=== PATIENT | male | born 1945 | race Caucasian/White ===

== ENCOUNTER 2023-10-17 11:52 | Outpatient (AMB) | payer MEDICARE, SELFPAY ==
--- NOTE | 2023-10-17 11:54 | AM.OFFWIN_ITS ---
Intake Vital Signs 10/17/23 11:56 Height 5 ft 9.6 in Weight 150 lb BMI 21.8 BP 114/68 Blood Pressure Location Lt brachial Position Sitting Pulse 85 Pulse Source Pulse Oximeter Temp 98.7 F Temp Source Oral Pulse Oximetry (%) 98 Oxygen Delivery Method Room Air Intake Visit Reasons: pain in right big toe Intake Note: Pt c/o RT great toe pain. Started a week ago, was trimming nails and cut flesh Patient Tobacco Use Status: Never used Tobacco Allergies No Known Allergies Allergy (Verified 10/17/23 11:55) Do you need a note to return to daycare/school/sports/work: No HPI HPI Comments History of Present Illness Details This is a 70-year-old male with past medical history of BPH, hyperlipidemia and Hodgkin's lymphoma presenting for evaluation of pain in his right great toe that has been ongoing for the past 5 days. Patient states approximately 1 week ago his was trimming his toenails when she cut the skin adjacent to his right great toe. Patient states he noticed pain on the lateral edge of his right great toe 5 days ago which became red 3 days ago. Patient denies having any fevers, chills, discharge from the lesion or pain with ambulation. [facility] Social History Patient Tobacco Use Status: Never used Tobacco Review of Systems Const All systems reviewed & are unremarkable except as noted in HPI and below Denies chills and Denies fever(s) Musc Reports no additional complaints Skin/Breast Reports system reviewed and no additional complaints, except as documented, Reports as per HPI and Reports erythema Neuro Reports no additional complaints Psych Reports no additional complaints Aller/Immun Reports no additional complaints Physical Exam Const General: cooperative, healthy appearing, comfortable, no acute distress, well developed, alert and awake Nutritional Appearance: average body habitus Orientation/consciousness: patient oriented x3 Limitations: no limitations Skin Other: Edema and erythema adjacent to the lateral border of the RGT; no trauma of nail identified, no purulence. Erythema is warm and tender to touch and extends <1cm from lateral and proximal nail. Trauma: other (lateral cuticle of RGT not present; there is surrounding macular erythema) Neuro General: patient oriented x3 Extrem Right lower extremity: foot (no pain to palpation of the phalanges of the RGT) Psych Appearance: grossly normal Mental Status: mental status grossly normal Insight: Good insight present (Psych) Judgement: Good judgement present (Psych) Assessment & Plan Assessment & Plan (1) Cellulitis of toe of right foot: Comment: There is no evidence of a bony injury and therefore imaging will be deferred at this time. Code(s): L03.031 - Cellulitis of right toe Plan: Keflex q.i.d. x7 days. Patient is instructed to elevate his right foot when at rest and use Tylenol or ibuprofen as needed for his discomfort. Medications: New cephalexin 500 mg PO QID 28 caps 0RF Coding Level of Care Code New Pt Level 3 (07324) Diagnoses Cellulitis of toe of right foot L03.031 Time Spent (min) 20
[2023-10-17 11:56] VITALS: BP 114/68; PULSE 85; TEMP 37.1; O2SAT 98; BMI 21.8
== END 2023-10-17 12:27 | disposition home or self-care (01) ==
PROVIDERS: Visit Provider Physician Assistant
DX: L03.031 Cellulitis of right toe (principal)
CPT/HCPCS: 99203